=== PATIENT | female | born 2000 | race American Indian/Alaskan Native ===

== ENCOUNTER 2019-05-01 00:10 | Emergency (ER) | payer MEDICAID ==
[2019-05-01 01:02] LABS: Alanine Aminotransferase 11 units/L (7-56); BUN/Creatinine Ratio 16; Blood Urea Nitrogen 8 mg/dL (7-17); Calcium 9.1 mg/dL (8.4-10.2); Hemolysis Index 5
[2019-05-01 01:16] LABS: Basophils # (Auto) 0.1 K/mm3 (0.0-0.1); Basophils % (Auto) 1.1 % (0.0-1.8); Eosinophils # (Auto) 0.4 K/mm3 (0.0-0.4); Eosinophils % (Auto) 5.2 % (0.0-4.3); Hematocrit 34.3 % (30.3-42.9); Hemoglobin 11.6 gm/dl (10.1-14.3); Lymphocytes # (Auto) 2.2 K/mm3 (1.2-5.4); Lymphocytes % (Auto) 25.7 % (13.4-35.0); Mean Corpuscular HGB Conc 34 % (30-34); Mean Corpuscular Volume 80 fl (79-97); Monocytes # (Auto) 0.5 K/mm3 (0.0-0.8); Monocytes % (Auto) 5.7 % (0.0-7.3); Platelet Count 215 K/mm3 (140-440); Red Blood Count 4.29 M/mm3 (3.65-5.03); Red Cell Distribution Width 14.7 % (13.2-15.2)
[2019-05-01] MEDS ORDERED: TYLENOL PO ONE (02:31)
[2019-05-01 03:10] LABS: Bilirubin,Urine NEG (Negative); Blood,Urine NEG (Negative); Color,Urine Yellow (Yellow); Mucus,Urine FEW /HPF; Protein,Urine <15 mg/dL mg/dL (Negative); Urobilinogen,Urine < 2.0 mg/dL (<2.0)
--- NOTE | 2019-05-01 03:26 | Ultrasound Report ---
US OB <= 14 weeks fetus INDICATION / CLINICAL INFORMATION: abdominal pain, . COMPARISON: None available. FINDINGS: Intrauterine gestational sac is seen with yolk sac and pole. [place]-rump length is 28.4 mm (9 we eks, 5 days). heart rate is 156. Right ovary is unremarkable. Left ovary is not visualized. No adnexal lesions or free fluid. IMPRESSION: 1. Single viable intrauterine with sonographic gestational age of 9 weeks, 5 days. Signer Name: Robinson Wyatt MD Signed: 05/01/2019 3:21 AM Workstation Name: [id number]
--- NOTE | 2019-05-01 03:42 | Emergency Department Report ---
ED Female HPI - General Chief complaint: Abdominal Pain Stated complaint: 12WKS PREG, DISCHARGE Time Seen by Provider: 05/01/19 02:40 Source: patient Mode of arrival: Ambulatory Limitations: No Limitations - History of Present Illness Initial comments: Patient is a A0 18-year-old -[place] female who is approximately 9 weeks gestation and presents to the ED with complaint of acute onset persistent lower abdominal pain with vaginal discharge for the last 2 days. Patient states that the pain is persistent and worse with any movement or palpation of the lower abdomen. Patient denies dysuria, vaginal bleeding, dizziness, chest pain, shortness of breath, fever, chills, nausea, vomiting, diarrhea, low back pain, cough or headache. MD Complaint: vaginal discharge, pelvic pain -: Sudden, days(s) (2) Location: suprapubic Radiation: non-radiating Severity: severe Severity scale (0 -10): 8 Quality: cramping, sharp Consistency: constant Improves with: none Worsens with: intercourse, movement Are you Now?: Yes (9 weeks gestation) Associated Symptoms: denies other symptoms, vaginal discharge, abdominal pain. denies: vaginal bleeding, nausea/vomiting, fever/chills, headaches, loss of appetite, dysuria, hematuria, seizure, shortness of breath, syncope, weakness, other - Related Data Sexually active: Yes : 3 Para: 2 A: 0 Previous Rx's Medication Instructions Recorded Last Taken Type Promethazine [Phenergan] 25 mg PO Q6HR PRN #20 tab 05/01/19 Unknown Rx cephALEXin [Keflex] 500 mg PO Q6HR #40 capsule 05/01/19 Unknown Rx metroNIDAZOLE [Flagyl] 500 mg PO Q12HR #14 tab 05/01/19 Unknown Rx Allergies Allergy/AdvReac Type Severity Reaction Status Date / Time iodine Allergy Unknown Verified 05/01/19 00:17 seafood Allergy Unknown Uncoded 05/01/19 00:17 ED Review of Systems ROS: Stated complaint: 12WKS PREG, DISCHARGE Other details as noted in HPI Constitutional: denies: chills, fever Eyes: denies: eye pain, eye discharge, vision change ENT: denies: ear pain, throat pain Respiratory: denies: cough, shortness of breath, wheezing Cardiovascular: denies: chest pain, palpitations Endocrine: no symptoms reported. denies: increased hunger, increased thirst, increased urine Gastrointestinal: abdominal pain. denies: nausea, vomiting, diarrhea Genitourinary: discharge. denies: urgency, dysuria Musculoskeletal: denies: back pain, joint swelling, arthralgia Skin: denies: rash, lesions Neurological: denies: headache, weakness, paresthesias Psychiatric: denies: anxiety, depression Hematological/Lymphatic: denies: easy bleeding, easy bruising ED Past Medical Hx - Past Medical History Previous Medical History?: No - Surgical History Past Surgical History?: No - Social History Smoking Status: Never Smoker - Medications Home Medications: Home Medications Medication Instructions Recorded Confirmed Last Taken Type Promethazine [Phenergan] 25 mg PO Q6HR PRN #20 tab 05/01/19 Unknown Rx cephALEXin [Keflex] 500 mg PO Q6HR #40 capsule 05/01/19 Unknown Rx metroNIDAZOLE [Flagyl] 500 mg PO Q12HR #14 tab 05/01/19 Unknown Rx ED Physical Exam - General Limitations: No Limitations General appearance: alert, in no apparent distress - Head Head exam: Present: atraumatic, normocephalic - Eye Eye exam: Present: normal appearance, PERRL, EOMI Pupils: Present: normal accommodation - ENT ENT exam: Present: normal exam, normal orophraynx, mucous membranes moist, TM's normal bilaterally, normal external ear exam - Neck Neck exam: Present: normal inspection, full ROM - Respiratory Respiratory exam: Present: normal lung sounds bilaterally. Absent: respiratory distress, wheezes, rales, chest wall tenderness, accessory muscle use, decreased breath sounds - Cardiovascular Cardiovascular Exam: Present: regular rate, normal rhythm, normal heart sounds. Absent: systolic murmur, diastolic murmur, rubs, gallop - GI/Abdominal GI/Abdominal exam: Present: soft, tenderness (mildly tender suprapubic area), normal bowel sounds. Absent: hyperactive bowel sounds, hypoactive bowel sounds, organomegaly - Rectal Rectal exam: Present: deferred - Bi-manual exam: Present: other (Deferred Pelvic exam; patient declined) - Extremities Exam Extremities exam: Present: normal inspection, full ROM, normal capillary refill - Back Exam Back exam: Present: normal inspection, full ROM. Absent: tenderness, CVA tenderness (R), CVA tenderness (L), muscle spasm, paraspinal tenderness, vertebral tenderness - Neurological Exam Neurological exam: Present: alert, oriented X3, CN II-XII intact, normal gait, reflexes normal - Psychiatric Psychiatric exam: Present: normal affect, normal mood - Skin Skin exam: Present: warm, dry, intact, normal color. Absent: rash ED Course - Reevaluation(s) Reevaluation #1: 05/01/19 03:40 The patient is alert and oriented 3 and is not in distress with normal vital signs. Lab test results were reviewed and show acute urinary tract infection with urinalysis. Patient was treated for pain with Tylenol and transvaginal and pelvic ultrasounds were ordered but the patient declined transvaginal ultrasound. Therefore pelvic ultrasound was performed and it shows a single viable IUP with sonographic gestational age of 9 weeks and 5 days and heart rate 156 bpm. On reevaluation, the patient's pain is well controlled with medications, and patient was also treated in the ED with Keflex 1 g by mouth 1 for acute urinary tract infection and discharged home on Keflex 500 mg every 6 hours for acute urinary tract infection. Patient was advised to maintain a complete pelvic rest, and to follow-up with her [employer]ING TECHNICIAN physician in 3-5 days for reevaluation or return to the ED immediately if symptoms get worse. 05/01/19 03:43 ED Medical Decision Making - Lab Data Result diagrams: 05/01/19 00:35 05/01/19 00:35 - Radiology Data Radiology results: report reviewed, image reviewed Pelvic ultrasound was performed and it shows a single viable IUP with sonographic gestational age of 9 weeks and 5 days and heart rate 156 bpm. - Medical Decision Making The patient is alert and oriented 3 and is not in distress with normal vital signs. Lab test results were reviewed and show acute urinary tract infection with urinalysis. Patient was treated for pain with Tylenol and transvaginal and pelvic ultrasounds were ordered but the patient declined transvaginal ult rasound. Therefore pelvic ultrasound was performed and it shows a single IUP with sonographic gestational age of 9 weeks and 5 days and heart rate 156 bpm. On reevaluation, the patient's pain is well controlled with medications, and patient was also treated in the ED with Keflex 1 g by mouth 1 for acute urinary tract infection and discharged home on Keflex 500 mg every 6 hours for acute urinary tract infection. Patient was advised to maintain a complete pelvic rest, and to follow-up with her [employer] PROC[employer]ING TECHNICIAN physician in 3-5 days for reevaluation or return to the ED immediately if symptoms get worse. - Differential Diagnosis Abdominal pain in , acute UTI, Bacterial vaginosis Critical care attestation.: If time is entered above; I have spent that time in minutes in the direct care of this critically ill patient, excluding procedure time. ED Disposition Clinical Impression: Abdominal pain during in first trimester, Acute urinary tract infection, Bacterial vaginosis Disposition: TO HOME OR SELFCARE Is pt being admited?: No Does the pt Need Aspirin: No Condition: Stable Instructions: Abdominal Pain (ED), Bacterial Vaginosis (ED), Urinary Tract Infection in Women (ED) Additional Instructions: MAINTAIN A COMPLETE PELVIC REST, AND FOLLOW UP WITH THE [facility] [employer]CHNICIAN PHYSICIAN IN 5-7 DAYS FOR REEVALUATION. RETURN TO THE ED IMMEDIATELY IF SYMPTOMS GET WORSE. Prescriptions: metroNIDAZOLE [Flagyl] 500 mg PO Q12HR #14 tab cephALEXin [Keflex] 500 mg PO Q6HR #40 capsule Promethazine [Phenergan] 25 mg PO Q6HR PRN #20 tab PRN Reason: Nausea Referrals: MARI MEYER MD [Primary Care Provider] - 3-5 Days Forms: STI Treatment and Prevention Time of Disposition: 03:45 Print Language: HUNGARIAN
[2019-05-01 04:12] VITALS: BP 119/72
== END 2019-05-01 04:12 | disposition home or self-care (01) ==
LOC: ED 00:10
DX: O23.41 Unspecified infection of urinary tract in pregnancy, first trimester (principal); B96.89 Other specified bacterial agents as the cause of diseases classified elsewhere; Z91.013 Allergy to seafood; Z91.018 Allergy to other foods; Z3A.09 9 weeks gestation of pregnancy
CPT/HCPCS: 36415; 76801; 80053; 81001; 84702; 84703; 85025; 87086; 99285